=== PATIENT | male | born 2000 | race Caucasian/White ===

== ENCOUNTER 2021-01-08 00:36 | Emergency (ER) | payer BC ==
[~2021-01-08] VITALS: Ht 182.9 cm; Wt 52.2 kg
== END 2021-01-08 04:14 | disposition home or self-care (01) ==
LOC: ED 00:36
DX: R53.83 Other fatigue (principal); R63.4 Abnormal weight loss
CPT/HCPCS: 73590; 80053; 81001; 84443; 85025; 99283-25

== ENCOUNTER 2024-10-18 22:27 | Emergency (ER) | payer BC ==
[~2024-10-18] VITALS: Ht 182.9 cm; Wt 55.9 kg
[2024-10-18] MEDS ORDERED: LACTATED RINGER'S 1,000 ML IV ONE (22:45)
[2024-10-18 23:00] LABS: BASOPHILS 0.8 % (0.2-1.2); EOSINOPHILS 2.2 % (0.8-7.0); HEMATOCRIT 41.3 % (40.1-51.0); HEMOGLOBIN 14.2 g/dL (13.7-17.5); LYMPHOCYTES 33.9 % (21.8-53.1); MCH 30.2 PG (25.7-32.2); MCHC 34.4 g/dL (32.3-36.5); MCV 87.9 fL (79.0-92.2); MONOCYTES 7.3 % (5.3-12.2); NEUTROPHILS 55.7 % (34.0-67.9); PLATELET COUNT 240 K/uL (163-337)
[2024-10-18 23:27] LABS: ALBUMIN 4.3 g/dL (3.4-5.0); ALBUMIN/GLOBULIN RATIO 1.23 (1.1-2.4); ANION GAP 13.2 (7-21); BUN/CREATININE RATIO 12.9 (6.0-28.6); CALCIUM 9.7 mg/dL (8.5-10.1); CREATININE, SERUM 0.93 mg/dL (0.70-1.30); MAGNESIUM 1.9 mg/dL (1.8-2.4); POTASSIUM 3.2 mmol/L (3.5-5.1); PROTEIN, TOTAL 7.8 g/dL (6.4-8.2)
[2024-10-18] MEDS ORDERED: MECLIZINE HCL25 MG PO (23:32)
[2024-10-18] MEDS ORDERED: POTASSIUM CHLORIDE 10 MEQ TABCR PO ONE (23:45)
[2024-10-18] MEDS ORDERED: MECLIZINE HCL 25 MG TAB PO ONE (23:45)
[2024-10-18 23:54] VITALS: BP 127/85
== END 2024-10-18 23:55 | disposition home or self-care (01) ==
LOC: ED 22:27
PROVIDERS: Family Medicine
DX: R42 Dizziness and giddiness (principal); Z88.0 Allergy status to penicillin
CPT/HCPCS: 36415; 80053; 83735; 84443; 85025; 99284; A9270; J7121